=== PATIENT | female | born 1995 | race Caucasian/White ===

== ENCOUNTER 2018-11-19 09:15 | Emergency (ER) | payer OTHER ==
[2018-11-19 09:27] VITALS: TEMP 98.5; BMI 21.2
--- NOTE | 2018-11-19 10:01 | PDOC ---
Attending Attestation - Resident Resident Name: Zach Aguirre - ED Attending Attestation I have performed the following: I have examined & evaluated the patient, The case was reviewed & discussed with the resident, I agree w/resident's findings & plan, Exceptions are as noted - HPI HPI: 11/19/18 09:42 23y F hx congeintal hypothyroidism, postural hypotension (recent workup including echo and holter by cardiology), bulemia, anxiety, presents with episode of syncope approximately 1 hr ago. Pt states he was feelnig orthostatic this morning (confirmed with vitals at the residence), she was standing up, felt lightheaded/palpitations and syncopized. It was witnessed by staff. Pt notes this is consistnt with prior episodes of syncope. Pt does endorse alittle bit of L sided chest tightness that radiates to the neck/arm. it is worse when you touch it, denies any associated sob, hemoptysis,headache, back pain, neck pain, abd pain, numness/tingling/ewakness, diarrhea, dysuria, frequency, cough. the pain is not worse when ambulating or with exertion. no leg swelling soc: denies smoking, etoh abuse, recreational drug use no recent med changes or new meds - Physicial Exam PE: 11/19/18 10:20 GENERAL: The patient is awake, alert, and fully oriented, Nontoxic - in no acute distress. HEAD: Normocephalic, atraumatic. EYES: extraocular movements intact, sclera anicteric, conjunctiva clear. ENT: Normal voice, moderately dry mucous membranes. NECK: Normal range of motion, supple LUNGS: Breath sounds equal, clear to auscultation bilaterally. No wheezes, no rhonchi, no rales. HEART: slightly tachycardic, normal S1 and S2 without murmur, rub or gallop. ABDOMEN: Soft, nontender, No guarding, no rebound. . No CVA tenderness EXTREMITIES: Normal range of motion, no edema. NEUROLOGICAL: No facial assymetry, Normal speech, PSYCH: Normal mood, normal affect. SKIN: Warm, Dry, normal turgor, - Medical Decision Making 11/19/18 10:21 suspect orthostatic caues of her syncope will r/o metabolic dernagemnt/anemia will give fluids, tyelnol ekg unremarkable
[2018-11-19] MEDS ORDERED: ACETAMINOPHEN 1000 MG/100 ML VIAL (NON FORMULARY) IVPB ONE (10:08)
[2018-11-19] MEDS ORDERED: SODIUM CHLORIDE 1,000 ML IV STA (10:08)
--- NOTE | 2018-11-19 10:15 | PDOC ---
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 Per the patient, she states she was standing when she felt lightheaded and palpitations and commenced to sit down on a couch chair. She had a LOC that lasted by her account 1 minute and awoke in the same position sitting without head trauma. Subsequently, she developed chest pain that is on the left chest wall, radiates to the neck and shoulder, 5/10 in severity, and described as an ache in quality. She states she had a cardiology work up [address] Lazaro with a holter monitor without significant findings and an echo that showed regurgitation of the valves. Denies the following: fever, chills, SOB, nausea, vomiting, headache, visual changes, abdominal pain, back pain, recent travels, hx of DVT/PE, use of OCPs, smoking, leg pain/swelling, dysuria, and diarrhea. Her last purge was 1 week ago and lived in a residential home for the last 2 months. Allergies: Amoxicillin, atropine, PCN, sulfa Social: Denies tobacco, alcohol, and substance abuse. Past History - Past Medical History Allergies/Adverse Reactions: Allergies Allergy/AdvReac Type Severity Reaction Status Date / Time amoxicillin Allergy Verified 11/19/18 09:17 atropine Allergy Verified 11/19/18 09:17 Penicillins Allergy Verified 11/19/18 09:17 Sulfa (Sulfonamide Allergy Verified 11/19/18 09:17 Antibiotics) Home Medications: Ambulatory Orders Buspirone HCl [Buspar -] 5 mg PO BID 11/19/18 Folic Acid 1 mg PO DAILY 11/19/18 Lamotrigine [Lamictal] 150 mg PO BID 11/19/18 Levothyroxine [Synthroid -] 75 mcg PO DAILY 11/19/18 Meloxicam [Mobic (Nf) -] 15 mg PO DAILY 11/19/18 Methotrexate Sodium [Methotrexate] 7.5 mg PO ASDIR 11/19/18 Venlafaxine HCl [Effexor -] 300 mg PO DAILY 11/19/18 traZODone HCL [Trazodone HCl] 100 mg PO HS 11/19/18 CVA: No COPD: No Psychiatric Problems: Yes (ANOREXIA) Thyroid Disease: Yes (HYPO) Other medical history: JUVENILE ARTHRITIS, - Suicide/Smoking/Psychosocial Hx Smoking History: Never smoked Hx Alcohol Use: No Drug/Substance Use Hx: No Review of Systems - Review of Systems Able to Perform ROS?: Yes Is the patient limited Japanese proficient: No Constitutional: No: Chills, Diaphoresis, Fever, Weakness HEENTM: No: Eye Pain, Recent change in vision, Ear Pain, Nose Pain, Throat Pain , Mouth Pain Respiratory: No: Cough, Shortness of Breath, Hemoptysis Cardiac (ROS): Yes: Chest Pain, Syncope. No: Lightheadedness, Palpitations, Chest Tightness ABD/GI: No: Constipated, Diarrhea, Nausea, Rectal Bleeding, Vomiting, Abdominal cramping, Tarry Stools : No: Burning, Dysuria, Frequency, Hematuria, Incontinence, Urgency Musculoskeletal: No: Back Pain, Joint Pain, Neck Pain Integumentary: No: Bruising, Erythema, Rash, Sweating Neurological: No: Headache, Numbness, Tingling, Tremors Psychiatric: No: Change in Appetite Endocrine: No: Excessive Sweating, Unexplained Weight Gain Hematologic/Lymphatic: No: Anemia *Physical Exam - Vital Signs Last Vital Signs Temp Pulse Resp BP Pulse Ox 98.5 F 109 H 16 127/82 100 11/19/18 09:16 11/19/18 09:16 11/19/18 09:16 11/19/18 09:16 11/19/18 09:16 - Physical Exam Comments: 11/19/18 10:15 PE normal General Appearance: Yes: Nourished, Appropriately Dressed. No: Apparent Distress, Intoxicated HEENT: positive: EOMI, ROLANDO, Normal Voice, Symmetrical, Pharynx Normal, Hearing Grossly Normal. negative: Pale Conjunctivae, Scleral Icterus (R), Scleral Icterus (L), Muffled/Hoarse voice, Pharyngeal Erythema, Tonsillar Exudate, Tonsillar Erythema, Nasal Congestion, Rhinorrhea, Excessive drooling Neck: positive: Trachea midline, Supple. negative: Tender, Lymphadenopathy (R) , Lymphadenopathy (L), Tender lateral, Tender midline Respiratory/Chest: positive: Lungs Clear, Normal Breath Sounds. negative: Chest Tender, Respiratory Distress, Accessory Muscle Use, Crackles, Rales, Rhonchi, Stridor, Wheezing, Hyperresonant Cardiovascular: positive: Regular Rhythm, S1, S2, Tachycardia. negative: Systolic Murmur Gastrointestinal/Abdominal: positive: Normal Bowel Sounds. negative: Tender, Distended, Guarding, Rebound Lymphatic: negative: Adenopathy Musculoskeletal: positive: Normal Inspection. negative: CVA Tenderness, Vertebral Tenderness Extremity: positive: Normal Capillary Refill, Normal Inspection, Normal Range of Motion. negative: Tender, Swelling, Calf Tenderness Integumentary: positive: Normal Color, Dry, Warm. negative: Swelling, Ecchymosis Neurologic: positive: resident services coordinator II-XII NML intact, Fully Oriented, Alert, Normal Mood/ Affect, Normal Response, Motor Strength 5/5. negative: EOM Palsy, Facial Droop , Sensory Deficit Heart Score/ECG Review - ECG Intrepretation Comment:: 11/19/18 10:15 ventricular rate is 101 bpm, ID is 130 ms, QRS is 88 ms, and QTc is 440 vms. Sinus tachycardia without ST elevations or depressions. 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 Initial vitals: Initial Vital Signs Temp Pulse Resp BP Pulse Ox 98.5 F 109 H 16 127/82 100 11/19/18 09:16 11/19/18 09:16 11/19/18 09:16 11/19/18 09:16 11/19/18 09:16 Work up: ddx: metabolic vs cardiogenic vs neurogenic vs infectious vs hypovolemic vs orthostatics causes of syncope. previously diagnosed with postural orthostatics and she was standing with onset of symptoms, sat down, then had LOC. will rule out anemia as well. given IVF, tylenol Laboratory Tests 11/19/18 11/19/18 11/19/18 10:26 10:26 10:26 WBC 10.8 RBC 4.00 Hgb 12.9 Hct 39.0 MCV 97.5 H MCH 32.1 MCHC 33.0 RDW 14.6 Plt Count 330 MPV 7.2 L Absolute Neuts (auto) 7.7 Neutrophils % 70.9 Lymphocytes % 17.9 Monocytes % 10.0 Eosinophils % 0.8 Basophils % 0.4 Sodium 140 Potassium 4.4 Chloride 104 Carbon Dioxide 28 Anion Gap 8 BUN 15 Creatinine 0.7 Est GFR (CKD-EPI)AfAm 140.55 Est GFR (CKD-EPI)NonAf 121.27 Random Glucose 77 Calcium 8.9 Total Bilirubin 0.2 AST 22 ALT 20 Alkaline Phosphatase 78 Troponin I Total Protein 6.8 Albumin 3.8 Urine Color Urine Appearance Urine pH Urine Protein Urine Glucose (UA) Urine Ketones Urine Blood Urine Nitrite Urine Bilirubin Urine Urobilinogen Ur Leukocyte Esterase Urine HCG, Qual Negative 11/19/18 11/19/18 10:26 10:26 WBC RBC Hgb Hct MCV MCH MCHC RDW Plt Count MPV Absolute Neuts (auto) Neutrophils % Lymphocytes % Monocytes % Eosinophils % Basophils % Sodium Potassium Chloride Carbon Dioxide Anion Gap BUN Creatinine Est GFR (CKD-EPI)AfAm Est GFR (CKD-EPI)NonAf Random Glucose Calcium Total Bilirubin AST ALT Alkaline Phosphatase Troponin I < 0.03 Total Protein Albumin Urine Color Yellow Urine Appearance Clear Urine pH 7.0 Urine Protein Negative Urine Glucose (UA) Negative Urine Ketones Negative Urine Blood Negative Urine Nitrite Negative Urine Bilirubin Negative Urine Urobilinogen 0.2 Ur Leukocyte Esterase Negative Urine HCG, Qual labs within normal limits. cxr within normal limits. patient to be discharged back to her facility. she states she feels better. will follow up with cardiology within 1 week after discharge. Dispo; Discharge *DC/Admit/Observation/Transfer Diagnosis at time of Disposition: Syncope Qualifiers: Syncope type: unspecified Qualified Code(s): R55 - Syncope and collapse - Discharge Dispostion Disposition: HOME Condition at time of disposition: Stable - Referrals Referrals: [facility] [place] [facility] [Provider Group] Leobardo Lazaro MD [Staff Physician] - - Patient Instructions Printed Discharge Instructions: DI for Syncope in Adults (Fainting) Additional Instructions: you were seen in the emergency department for the evaluation of your syncope. your labs, imaging, and ekg were within normal limits. please follow up with your primary medical doctor within 1 week after discharge. please stay hydrated. please return to the emergency department if you have worsening symptoms or new concerning symptoms such as loss of consciousness, headache, confusion, and localized deficits. thank you, - Post Discharge Activity
[2018-11-19] MEDS ORDERED: ACETAMINOPHEN INJECTION 100 ML IVPB ONE (10:26)
[2018-11-19 10:54] LABS: BASO % 0.4 % (0-2.0); EOS % 0.8 % (0-4.5); HEMOGLOBIN 12.9 GM/dl (10.7-15.3); LYMPH % 17.9 % (8-40); MCH 32.1 pg (25.7-33.7); MEAN CELL VOLUME 97.5 fl (80-96); MEAN PLT VOLUME 7.2 fl (7.5-11.1); NEUT % 70.9 % (42.8-82.8); PLATELET COUNT 330 K/MM3 (134-434); RDW 14.6 % (11.6-15.6); WHITE BLOOD COUNT 10.8 K/mm3 (4.0-10.8)
[2018-11-19 11:03] LABS: ALBUMIN 3.8 g/dl (3.4-5.0); BILIRUBIN,TOTAL 0.2 mg/dl (0.2-1); CALCIUM 8.9 mg/dl (8.5-10); CREATININE 0.7 mg/dl (0.55-1.3); POTASSIUM 4.4 mmol/L (3.5-5.1); TOT PROT 6.8 g/dl (6.4-8.2)
[2018-11-19 11:27] VITALS: BP 114/69; PULSE 97
--- NOTE | 2018-11-19 14:37 | EKG ---
Test Reason : Blood Pressure : / mmHG Vent. Rate : 101 BPM Atrial Rate : 101 BPM P-R Int : 130 ms QRS Dur : 088 ms QT Int : 340 ms P-R-T Axes : 059 047 050 degrees QTc Int : 440 ms SINUS TACHYCARDIA OTHERWISE NORMAL ECG NO PREVIOUS ECGS AVAILABLE Confirmed by VIVIAN REYES MD ([id number]) on 11/19/2018 2:37:02 PM Referred By: JOHNNY SANDOVAL Confirmed By:VIVIAN REYES MD
== END 2018-11-19 12:25 | disposition home or self-care (01) ==
LOC: FER 09:15
PROC: 3E033NZ Introduction of Analgesics, Hypnotics, Sedatives into Peripheral Vein, Percutaneous Approach (ICD-10-PCS; principal; 2018-11-19)
PROC: 3E0337Z Introduction of Electrolytic and Water Balance Substance into Peripheral Vein, Percutaneous Approach (ICD-10-PCS; 2018-11-19)
DX: R55 Syncope and collapse (principal); I95.1 Orthostatic hypotension; E03.9 Hypothyroidism, unspecified; F41.9 Anxiety disorder, unspecified; F50.2 Bulimia nervosa
CPT/HCPCS: 36415; 71046-TC-FY; 80053; 81003; 84484; 84703; 85025; 87086; 93005; 99283-25; J0131; J7030